=== PATIENT | female | born 1960 | race Caucasian/White ===

== ENCOUNTER 2021-03-08 15:40 | Emergency (ER) | payer OTHER ==
[~2021-03-08] VITALS: Ht 162.6 cm; Wt 52.2 kg
--- NOTE | 2021-03-08 16:04 | NUR ---
at bedside for assessent
[2021-03-08] MEDS ORDERED: predniSONE 20 MG TABLET PO ONE (16:15)
[2021-03-08] MEDS ORDERED: IPRATROPIUM BROMIDE 0.5 MG/2.5 ML NEBU NEB ONE (16:15)
[2021-03-08] MEDS ORDERED: ALBUTEROL SULFATE 2.5 MG/3 ML NEBU NEB ONE (16:15)
--- NOTE | 2021-03-08 16:16 | NUR ---
Patient receiving updraft breathing treatment at this time
[2021-03-08] MEDS ORDERED: predniSONE 10 MG TABLET ONE ×2 (16:17→16:21)
[2021-03-08] MEDS ORDERED: predniSONE 50 MG TABLET ONE ×2 (16:17→16:21)
[2021-03-08] MEDS ORDERED: IPRATROPIUM BROMIDE 0.5 MG/2.5 ML NEBU ONE (16:18)
[2021-03-08] MEDS ORDERED: ALBUTEROL SULFATE 2.5 MG/3 ML NEBU ONE (16:18)
[2021-03-08 16:53] LABS: HEMATOCRIT 39.8 % (31.2-41.9); MEAN CORPUSCULAR HEMOGLOBIN 33.9 uug (24.7-32.8); MEAN CORPUSCULAR VOLUME 99.4 fL (75.5-95.3); PLATELET COUNT (AUTO) 296 K/uL (179-408)
[2021-03-08 16:58] LABS: CREATININE 0.7 mg/dL (0.6-1.3); POTASSIUM 3.9 mmol/L (3.5-5.1)
[2021-03-08] MEDS ORDERED: PRED20TA PO (17:27)
[2021-03-08] MEDS ORDERED: ALBU18HF2 INH (17:27)
[2021-03-08] MEDS ORDERED: DOXY-326 PO (17:27)
--- NOTE | 2021-03-08 17:35 | NUR ---
Patient discharged to home in stable condition. Patient noted walking with stable gait, no signs of acute distress. Written and verbal after care instructions given. Patient verbalizes understanding of instructions. Stressed follow up or return to ER for worsening s/s.
[2021-03-08 17:36] VITALS: BP 134/87
== END 2021-03-08 17:30 | disposition home or self-care (01) ==
LOC: ER 15:40
DX: R06.2 Wheezing (principal); R05 Cough; F17.290 Nicotine dependence, other tobacco product, uncomplicated; R06.02 Shortness of breath
CPT/HCPCS: 36415; 71046; 80048; 83880; 84484; 85025; 93005; 94640; 99285; J7512 ×2; 70030-TC; A4663; J3590

== ENCOUNTER 2021-08-15 03:47 | Emergency (ER) | payer SELFPAY ==
[~2021-08-15 03:47] MED LIST: ALBU18HF2 INH; DOXY-326 PO; PRED20TA PO
--- NOTE | 2021-08-15 04:28 | NUR ---
Patient was called to be traiged but was not present in the waiting room or outside of ER.
--- NOTE | 2021-08-15 04:40 | NUR ---
Patient was called to be traiged but was not present in waiting room or outside of ER.
--- NOTE | 2021-08-15 05:00 | NUR ---
Patient was called to be traiged but was not present in the waiting or outside of ER. PATIENT WAS NOT TRIAGED OR SEEN BY [facility].
== END 2021-08-15 05:00 | disposition left against medical advice (07) ==
LOC: ER 03:50
DX: Z53.21 Procedure and treatment not carried out due to patient leaving prior to being seen by health care provider (principal)